=== PATIENT | male | born 1960 | race Caucasian/White ===

== ENCOUNTER 2023-04-10 18:55 | Outpatient (CLI) | payer OTHER, SELFPAY ==
--- NOTE | 2023-04-18 14:51 | W.PM.SLEEP ---
Sleep Study Details Details Interpreting Provider: Soy Date of Sleep Study: 04/10/23 Sleep Study Details: STUDY TYPE:? Home unattended ? BMI:? Not recorded ORDERING PROVIDER:? Soy INDICATION:? Concerns about sleep apnea ? SLEEP SUMMARY:? 478.3 minutes monitored RESPIRATORY SUMMARY:? AHI 18 by CMS guideline, 26.7 by rule 1A/3% desat Low oxygen 82 23.9% of study oxygen less than 90% Snoring 66.9% PERIODIC LIMB MOVEMENTS OF SLEEP:? Not recorded during home study CARDIAC:? Range 51-83, mean 63 beats per minute IMPRESSION:? Moderate obstructive sleep apnea with significant desaturations. Some central apneas were noted particularly in the supine position. RECOMMENDATION: Treatment options include in-lab titration, auto set CPAP with close follow-up, dental appliance and/or airway expansion surgery. Note there was significant supine position dependency but apneas and hypopneas were present and lateral positions in addition to supine.
== END 2023-04-10 18:56 | disposition home or self-care (01) ==
LOC: SLEEP 18:57
PROVIDERS: Visit Provider Otolaryngology
DX: G47.33 Obstructive sleep apnea (adult) (pediatric) (principal)
CPT/HCPCS: 95806